=== PATIENT | male | born 1935 ===

== ENCOUNTER 2023-07-12 11:21 | Outpatient (REF) | payer SELFPAY ==
--- NOTE | 2023-07-12 13:07 | MHC.AU.HA3 ---
Hearing Instrument Follow-Up- Binaural Date of Visit: 07/12/23 Follow-Up Summary: Rivas is a very experienced hearing aid user, reports longtime loyalty to [facility] prior to recently flying to [facility] in hopes of improved clarity. His most recent hearing test from an outside facility shows WRS of 20% in the right ear and 16% in the left ear. He states he returned the [employer] aids once back at home as they were too loud and he felt they were too expensive, given that he found he could purchase the same aids through a company called [employer] for significantly less. Today he came to the clinic wearing Widex RICs with domes and a box of [employer] Chuyita AI 24 R RICs with medium receivers and a variety of domes. He states they were mailed to him, presumably at full-on gain; he hopes to have them adjusted to his hearing loss. Given that Rivas has a very significant hearing loss, I recommend custom power receivers. He notes he was told the same thing at [facility]. Discussed pricing for earmolds and programming; he wants to call [employer] and see if they will reimburse him for these additional expenses. Also discussed pricing if he were to try new hearing aids through our clinic. He plans to call back with a decision, knows he will need to come in for impressions if he decides to move forward with our office. Recommendations: Recommendations: Please contact our clinic with any questions or concerns. Diagnosis Code(s): Primary Diagnosis: H90.3 Bilateral Sensorineural Hearing Loss Signature: Provider: Landen Harley, [facility]
== END 2023-07-12 11:22 | disposition home or self-care (01) ==
LOC: HO.HAP 11:21
PROVIDERS: Visit Provider Internal Medicine
DX: Z13.89 Encounter for screening for other disorder (principal)

== ENCOUNTER 2023-08-09 13:38 | Outpatient (REF) | payer SELFPAY ==
--- NOTE | 2023-08-10 10:07 | MHC.AU.HA3 ---
Hearing Instrument Follow-Up- Binaural Date of Visit: 08/09/23 Right Ear: Make, Model, Color, Serial Number: Darlene MÁRQUEZ Left Ear: Make, Model, Color, Serial Number: Darlene MÁRQUEZ Follow-Up Summary: Roge visited with his Tomasa to further discuss his options with the [employer] aids he purchased online. I again recommended AP molds and programming with [employer]. He agreed, understands these would be nonrefundable charges. He had impressions from [facility] that I mailed in with his order form. Will contact when they arrive, will need a full fitting appointment. Recommendations: Recommendations: Patient will be contacted when materials have arrived. Diagnosis Code(s): Primary Diagnosis: H90.3 Bilateral Sensorineural Hearing Loss Signature: Provider: Landen Harley, CCC-A
== END 2023-08-09 13:39 | disposition home or self-care (01) ==
LOC: HO.HAP 13:38
PROVIDERS: Visit Provider Emergency Medicine
DX: Z13.89 Encounter for screening for other disorder (principal)

== ENCOUNTER 2023-08-24 11:00 | Outpatient (REF) | payer SELFPAY | END 2023-08-24 11:01 | disposition home or self-care (01) | LOC: HO.HAP 11:00 | PROVIDERS: Visit Provider Internal Medicine | DX: Z46.1 Encounter for fitting and adjustment of hearing aid (principal); H90.3 Sensorineural hearing loss, bilateral | CPT/HCPCS: 92700 ==

== ENCOUNTER 2023-09-02 14:24 | Outpatient (REF) | payer SELFPAY ==
--- NOTE | 2023-09-05 08:56 | MHC.AU.HA3 ---
Hearing Instrument Follow-Up- Binaural Date of Visit: 09/02/23 Right Ear: Make, Model, Color, Serial Number: Darlene MÁRQUEZ 24 SN: [id number] Smelter Liner Repair Warranty: dates unknown Smelter Liner Loss and Damage Warranty: dates unknown [facility] Service Plan: N/A Battery Size: Rechargeable Earmold/Dome/CShell/SlimTip:Power embedded wood machinist apprentice [id number] Type of Wax Guard: Hearclear Dispensed By: Yes Hearing Left Ear: Make, Model, Color, Serial Number: Darlene Boogie 24 SN: [id number] Smelter Liner Repair Warranty: dates unknown Smelter Liner Loss and Damage Warranty: dates unknown [facility] Service Plan: N/A Battery Size: Rechargeable Earmold/Dome/CShell/SlimTip: Power embedded wood machinist apprentice [id number] Type of Wax Guard: Hearclear Dispensed By: Yes Hearing Follow-Up Summary: Roge returned for fitting with his earmolds and reprogramming/real ear measurements. Fit and verified to DSL 5.0 targets. Roge could hear me much better in the office-- I did not need to raise my volume which I have had to do at all appointments prior to today. He requested multiple programs; P1 normal, P2 restaurant (directional), P3 car, P4 television. Discussed realistic expectations for hearing his when he is driving the car. Follow up scheduled for 2-3 weeks. Recommendations: Recommendations: An additional follow-up was scheduled to monitor progress. Diagnosis Code(s): Primary Diagnosis: H90.3 Bilateral Sensorineural Hearing Loss Signature: Provider: Landen Harley, [facility]
== END 2023-09-02 14:25 | disposition home or self-care (01) ==
LOC: HO.HAP 14:24
PROVIDERS: Visit Provider Emergency Medicine
DX: Z46.1 Encounter for fitting and adjustment of hearing aid (principal); H90.3 Sensorineural hearing loss, bilateral
CPT/HCPCS: V5020; V5264

== ENCOUNTER 2023-09-08 13:15 | Outpatient (REF) | payer SELFPAY ==
--- NOTE | 2023-09-09 08:15 | MHC.AU.HA3 ---
Hearing Instrument Follow-Up- Binaural Date of Visit: 09/08/23 Right Ear: Make, Model, Color, Serial Number: Darlene Boogie 24 SN: [id number] Knotter Repair Warranty: dates unknown Knotter Loss and Damage Warranty: dates unknown [facility] Service Plan: N/A Battery Size: Rechargeable Binder Stripper Hand/Slim Tube: Earmold/Dome/CShell/SlimTip:Power embedded wood mill supervisor [phone] Type of Wax Guard: Hear Clear Dispensed By: Yes Hearing Left Ear: Make, Model, Color, Serial Number: Darlene Boogie 24 SN: [id number] Knotter Repair Warranty: dates unknown Knotter Loss and Damage Warranty: dates unknown [facility] Service Plan: N/A Battery Size: Rechargeable Binder Stripper Hand/Slim Tube: Earmold/Dome/CShell/SlimTip: Power embedded wood mill supervisor [phone] Type of Wax Guard: Hear Clear Dispensed By: Yes Hearing Follow-Up Summary: Roge reports he is hearing better with the earmolds, but they both hurt. Ground both down, reported comfort in office. Follow up as planned 09/21/23. Recommendations: Recommendations: Follow up as scheduled. Diagnosis Code(s): Primary Diagnosis: H90.3 Bilateral Sensorineural Hearing Loss Signature: Provider: Landen Harley, [facility]
== END 2023-09-08 13:16 | disposition home or self-care (01) ==
LOC: HO.HAP 13:15
PROVIDERS: Visit Provider Internal Medicine
DX: Z13.89 Encounter for screening for other disorder (principal)

== ENCOUNTER 2023-09-26 07:57 | Outpatient (REF) | payer SELFPAY ==
--- NOTE | 2023-09-26 11:43 | MHC.AU.HA3 ---
Hearing Instrument Follow-Up- Binaural Date of Visit: 09/26/23 Right Ear: Make, Model, Color, Serial Number: Darlene Boogie 24 SN: [id number] Lacquer Shader Repair Warranty: dates unknown Lacquer Shader Loss and Damage Warranty: dates unknown [facility] Service Plan: N/A Battery Size: Rechargeable Earmold/Dome/CShell/SlimTip:Power embedded director medical economics [id number] Type of Wax Guard: Hear Clear Dispensed By: Yes Hearing Left Ear: Make, Model, Color, Serial Number: Darlene Boogie 24 SN: [id number] Lacquer Shader Repair Warranty: dates unknown Lacquer Shader Loss and Damage Warranty: dates unknown [facility] Service Plan: N/A Battery Size: Rechargeable Earmold/Dome/CShell/SlimTip: Power embedded director medical economics [phone] Type of Wax Guard: Hear Clear Dispensed By: Yes Hearing Follow-Up Summary: Roge reports better sound quality with the earmolds, but they both still hurt. Ground down, he reported improved comfort in office. Will contact our office if issues persist. Recommendations: Recommendations: Patient will call if problems persist. Diagnosis Code(s): Primary Diagnosis: H90.3 Bilateral Sensorineural Hearing Loss Signature: Provider: Landen Harley, CCC-A
== END 2023-09-26 07:58 | disposition home or self-care (01) ==
LOC: HO.HAP 07:57
PROVIDERS: Visit Provider Emergency Medicine
DX: Z13.89 Encounter for screening for other disorder (principal)

== ENCOUNTER 2023-09-29 13:40 | Outpatient (REF) | payer SELFPAY | END 2023-09-29 13:41 | disposition home or self-care (01) | LOC: HO.HAP 13:40 | PROVIDERS: Visit Provider Internal Medicine | DX: Z13.89 Encounter for screening for other disorder (principal) ==

== ENCOUNTER 2023-10-06 10:58 | Outpatient (REF) | payer SELFPAY | END 2023-10-06 10:59 | disposition home or self-care (01) | LOC: HO.HAP 10:58 | PROVIDERS: Visit Provider Internal Medicine | DX: Z13.89 Encounter for screening for other disorder (principal) ==

== ENCOUNTER 2023-10-19 14:12 | Outpatient (REF) | payer SELFPAY | END 2023-10-19 14:13 | disposition home or self-care (01) | LOC: HO.HAP 14:12 | PROVIDERS: Visit Provider Emergency Medicine | DX: Z13.89 Encounter for screening for other disorder (principal) ==

== ENCOUNTER 2023-10-20 14:31 | Outpatient (REF) | payer SELFPAY | END 2023-10-20 14:32 | disposition home or self-care (01) | LOC: HO.HAP 14:31 | PROVIDERS: Visit Provider Emergency Medicine | DX: Z13.89 Encounter for screening for other disorder (principal) ==

== ENCOUNTER 2024-01-24 13:24 | Outpatient (REF) | payer SELFPAY | END 2024-01-24 13:25 | disposition home or self-care (01) | LOC: HO.HAP 13:24 | PROVIDERS: Visit Provider Emergency Medicine | DX: Z46.1 Encounter for fitting and adjustment of hearing aid (principal); H90.3 Sensorineural hearing loss, bilateral | CPT/HCPCS: 92593 ==